=== PATIENT | male | born 1990 | race Two or more races ===

== ENCOUNTER 2017-02-03 04:03 | Emergency (ER) | payer OTHER ==
[2017-02-03] MEDS ORDERED: IPRATROPIUM/ALBUTEROL 3 ML DEYVIAL ONE (04:25)
[2017-02-03] MEDS ORDERED: IPRATROPIUM/ALBUTEROL 3 ML DEYVIAL IH ONE (04:27)
--- NOTE | 2017-02-03 04:28 | EDPHY ---
H & P Stated Complaint: SOB, difficulty breathing and cough since wednesday Time Seen by Provider: 02/03/17 04:16 HPI/ROS: Chief complaint: Shortness of breath and wheeze HPI: 26-year-old male who was recently diagnosed in November with possible reactive airway disease. Patient was started on Flovent given albuterol inhaler by his primary care physician. He used seizing was doing well until he ran out about 3 weeks ago. Patient believes that he may be allergic to dogs in he was around a dog over the weekend. Since then he has been having worsening wheeze and shortness of breath. He did get his Flovent and albuterol filled yesterday has been using them but is still continued to wheeze and feels short of breath. He is a dry nonproductive cough. No fevers or chills. No nausea or vomiting. He has not been using a spacer with his inhalers. He has not had formal pulmonary function testing done. No nausea or vomiting. Does have some shortness of breath associated with his wheezing and chest tightness. ROS: 10 point Review of Systems is negative except as noted in the HPI. Past medical history: Possible reactive airways disease Medications: Flovent and albuterol p.r.n. Allergies: No known drug allergies Social history nonsmoker, occasional alcohol, denies drug use Physical exam: Gen: Awake, Alert, No Distress HEENT: Nose: no rhinorrhea Eyes: PERRLA, EOMI Mouth: Moist mucosa Neck: Supple, no JVD Chest: nontender, diffuse expiratory wheeze in all lung zones, no focal rales or rhonchi Heart: S1, S2 normal, no murmur Abd: Soft, non-tender, no guarding Back: no CVA tenderness, no midline tenderness Ext: no edema, non-tender Skin: no rash Neuro: CN II-XII intact, Sensation grossly intact, Strength 5/5 in bilateral upper and lower extremities - Personal History Current Tetanus/Diphtheria Vaccine: Unsure Current Tetanus Diphtheria and Acellular Pertussis (TDAP): Unsure - Medical/Surgical History Hx Asthma: Yes Hx Chronic Respiratory Disease: No Hx Diabetes: No Hx Cardiac Disease: No Hx Renal Disease: No Hx Cirrhosis: No Hx Alcoholism: No Hx HIV/AIDS: No Hx Splenectomy or Spleen Trauma: No Other PMH: asthma, ACL surgery 2011 - Social History Smoking Status: Never smoked Constitutional: Initial Vital Signs Temperature (C) 36.6 C 02/03/17 04:05 Heart Rate 102 H 02/03/17 04:05 Respiratory Rate 18 02/03/17 04:05 Blood Pressure 148/88 H 02/03/17 04:05 O2 Sat (%) 93 02/03/17 04:05 O2 Delivery Mode Room Air Allergies/Adverse Reactions: No Known Allergies Allergy (Unverified 02/03/17 04:08) Home Medications: Medication Instructions Recorded Albuterol 02/03/17 Flovent Diskus 02/03/17 predniSONE 60 mg PO DAILY #9 tab 02/03/17 Medical Decision Making - Data Points Medications Given: Discontinued Medications Albuterol/Ipratropium (Duoneb) 3 ml IH EDNOW ONE Stop: 02/03/17 04:28 Last Admin: 02/03/17 04:36 Dose: 3 ml Prednisone (Prednisone) 60 mg PO EDNOW ONE Stop: 02/03/17 04:59 Last Admin: 02/03/17 04:45 Dose: 60 mg Departure - Departure Disposition: Home, Routine, Self-Care Clinical Impression: Reactive airway disease Condition: Good Instructions: Reactive Airways Disease (ED), Wheezing (ED) Additional Instructions: Continue using your Flovent as prescribed. Always use a spacer with an inhaler. He may continue to use albuterol 2 puffs every 4 hours as needed for wheeze. Take her full course of prednisone for the next 3 days. Follow up with her primary care physician in 2-3 days for re-evaluation and to arrange formal pulmonary function tests. Referrals: SOPHIA YIP [Primary Care Provider] - As per Instructions Prescriptions: predniSONE 60 mg PO DAILY #9 tab
[2017-02-03] MEDS ORDERED: predniSONE 20 MG TAB ONE (04:46)
[2017-02-03] MEDS ORDERED: predniSONE 20 MG TAB PO ONE (04:58)
[2017-02-03 05:45] VITALS: BP 123/76; PULSE 80; RESP 16; TEMP 98.2; O2SAT 96
== END 2017-02-03 05:45 | disposition home or self-care (01) ==
DX: J45.909 Unspecified asthma, uncomplicated (principal)